=== PATIENT | male | born 1975 | race American Indian/Alaskan Native ===

== ENCOUNTER → 2024-12-31 17:22 | Outpatient (CLI) | payer OTHER, SELFPAY ==
--- NOTE | 2024-12-31 17:32 | DI.RAD.S_ITS ---
PROCEDURE: XR FINGER LT MIN 2V INDICATIONS: PAIN TECHNIQUE: AP hand, 2 views of the 1st finger(s) acquired. COMPARISON: None. FINDINGS AND IMPRESSION: No acute displaced fracture or dislocation. No high-grade degenerative changes. No suspicious soft tissue calcifications. Partially seen scattered carpal and 1st CMC mild degenerative changes and possible positive ulnar variance. If there is high concern for further derangement, consider MRI evaluation. Dictated by: Bethel Baez M.D. on 01/01/2025 at 8:59 Approved by: Bethel Baez M.D. on 01/01/2025 at 9:00
== END ==
PROVIDERS: PCP Nurse Practitioner Family; Referring Provider Nurse Practitioner Family; Visit Provider Nurse Practitioner Family
DX: S67.02XA Crushing injury of left thumb, initial encounter (principal); M79.645 Pain in left finger(s); X58.XXXA Exposure to other specified factors, initial encounter
CPT/HCPCS: 73140

== ENCOUNTER → 2025-04-14 10:21 | Outpatient (CLI) | payer OTHER, SELFPAY ==
--- NOTE | 2025-04-14 10:23 | DI.RAD.S_ITS ---
PROCEDURE: XR CHEST 2V INDICATIONS: Hemoptysis TECHNIQUE: 2 views of the chest were acquired. COMPARISON: None. FINDINGS: Surgical changes and devices: None. Lungs and pleura: Patchy mild airspace opacity in the left lower lung. No pleural effusion. The right lung is clear. Mediastinum: Mediastinal contours are normal. Heart size is normal. Bones and chest wall: No suspicious bony abnormalities. Soft tissues appear unremarkable. IMPRESSION: Patchy left lung alveolar opacity. Probably pneumonia in the appropriate clinical setting. Dictated by: Natalee Beverly M.D. on 04/14/2025 at 15:10 Approved by: Natalee Beverly M.D. on 04/14/2025 at 15:15
== END ==
PROVIDERS: PCP Nurse Practitioner Family; Referring Provider Nurse Practitioner Family; Visit Provider Nurse Practitioner Family
DX: R04.2 Hemoptysis (principal)
CPT/HCPCS: 71046